=== PATIENT | male | born 1990 | race Two or more races ===

== ENCOUNTER 2016-09-21 22:09 | Emergency (ER) | payer SELFPAY ==
[2016-09-21] MEDS ORDERED: Sodium Chloride 0.9% 1,000 ML PRIMARY IV ONE (22:24)
[2016-09-21] MEDS ORDERED: NORMAL SALINE 10 ML SYRINGE FLUSH IVP PRN (22:24)
[2016-09-21] MEDS ORDERED: DIPH,PERTUSS,TET(ADACEL) VAC/PF 0.5 ML (Tdap) IM ONE (22:27)
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
[2016-09-21 22:47] VITALS: RESP 16; TEMP 96.9
[2016-09-21 22:48] LABS: BASOPHILS # (AUTO) 0.03 10*3/UL; BASOPHILS % (AUTO) 0.3 % (0-1); EOSINOPHILS % (AUTO) 1.3 % (0-8); HEMATOCRIT 49.5 % (42.0-52.0); HEMOGLOBIN 17.5 g/dL (14.0-18.0); IMM GRAN % (AUTO) 0.3 % (0-5); IMM GRAN# (AUTO) 0.03 10*3/UL; LYMPHOCYTES # (AUTO) 1.44 10*3/uL; LYMPHOCYTES % (AUTO) 15.5 % (10-50); MEAN CORPUSCULAR HEMOGLOBIN 31.1 PG (27-31); MEAN CORPUSCULAR HGB CONC 35.4 g/dL (33-37); MEAN PLATELET VOLUME 11.1 FL (7.4-12.2); MONOCYTES % (AUTO) 9.7 % (5-15); NEUTROPHILS # (AUTO) 6.75 10*3/UL; NEUTROPHILS % (AUTO) 72.9 % (50-80); RDW COEFFICIENT OF VARIATION 14.5 % (11.5-14.5); RED BLOOD COUNT 5.62 10^6/uL (4.70-6.10); WHITE BLOOD COUNT 9.27 10^3/uL (4.8-10.8)
[2016-09-21 22:49] LABS: PLATELET MORPHOLOGY COMMENT NORMAL MORPHOLOGY (NORM)
[2016-09-21 22:58] LABS: ASPARTATE AMINO TRANSFERASE 29 IU/L (21-57); BILIRUBIN,TOTAL 0.7 mg/dL (0.3-1.2); BLOOD UREA NITROGEN 12 mg/dL (7-22); CALCIUM 9.8 mg/dL (8.7-10.7); CHLORIDE 105 meq/L (98-112); CREATININE 0.8 mg/dL (0.70-1.50); EST GLOMERULAR FILTRATION > 60 (>60 ml/min/1.73m(2)); GLUCOSE 144 mg/dL (78-110); MAGNESIUM 1.8 mg/dL (1.6-2.4); POTASSIUM 3.6 meq/L (3.8-5.2); SERUM ALCOHOL < 10 mg/dL (0-10); SODIUM 143 meq/L (135-145); TOTAL PROTEIN 7.9 g/dL (6.1-8.0)
[2016-09-22 00:07] LABS: HIV ANTIBODY NEGATIVE (N); HIV-1 P24 ANTIGEN NEGATIVE (N)
[2016-09-22 00:49] LABS: BILIRUBIN,URINE MODERATE (NEG); CLARITY,URINE CLEAR (CLEAR); GLUCOSE, URINE (UA) NEGATIVE (NEG); LEUKOCYTE ESTERASE ,URINE NEGATIVE (NEG); NITRATE,URINE NEGATIVE (NEG); PROTEIN,URINE 100 mg/dl (NEG)
[2016-09-22 00:50] LABS: URINE SAMPLE TYPE CLEAN CATCH URINE
[2016-09-22 00:51] LABS: OCCULT BLOOD,URINE TRACE (NEG)
[2016-09-22 00:54] LABS: RBC,URINE RARE /hpf; SQUAMOUS EPITHELIAL CELL,UR RARE
[2016-09-22 00:57] LABS: CANNABINOID SCREEN,URINE POSITIVE (NEG); COCAINE SCREEN NEGATIVE (NEG); METHAMPHETAMINES SCREEN,URINE NEGATIVE (NEG)
[2016-09-22] MEDS ORDERED: BACITRACIN 0.9 GM PACKET OINT TOPICAL ONE (00:57)
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
== END 2016-09-22 01:12 ==
LOC: ER 22:09
DX: S61.412A Laceration without foreign body of left hand, initial encounter (principal); S60.512A Abrasion of left hand, initial encounter; S61.411A Laceration without foreign body of right hand, initial encounter; S60.511A Abrasion of right hand, initial encounter; S60.222A Contusion of left hand, initial encounter; S60.221A Contusion of right hand, initial encounter; M79.641 Pain in right hand; W22.8XXA Striking against or struck by other objects, initial encounter
CPT/HCPCS: 73120; 73130; 80053; 80305; 80320; 80329; 81001; 81003; 83735; 84443; 85025; 86703; 87902; 90471; 96360; 99283; J7030